=== PATIENT | female | born 1955 ===

== ENCOUNTER 2018-10-08 05:54 | Day surgery (SDC) | payer MEDICAID ==
[2018-09-06 10:41] VITALS: BMI 38.1
[~2018-10-08 05:54] MED LIST: Cyclopentolate 1% Opth (2 ml) OS SCH; Ketorolac Tromethamine 0.5% Opth Soln (3 ml) OS SCH; Lactated Ringer's 500 ML IV ONE; Ofloxacin 0.3% Ophth Soln OS SCH; Phenylephrine 2.5% Opht Soln OS SCH; Tropicamide 0.5% Opht Sol OS SCH
[2018-10-08] MEDS ORDERED: Ketorolac Tromethamine 0.5% Opth Soln (3 ml) OS SCH ×2 (06:00→06:30)
[2018-10-08] MEDS ORDERED: Cyclopentolate 1% Opth (2 ml) OS SCH ×2 (06:00→06:30)
[2018-10-08] MEDS ORDERED: Ofloxacin 0.3% Ophth Soln OS SCH ×2 (06:00→06:30)
[2018-10-08] MEDS ORDERED: Tropicamide 0.5% Opht Sol OS SCH ×2 (06:00→06:30)
[2018-10-08] MEDS ORDERED: Phenylephrine 2.5% Opht Soln OS SCH ×2 (06:00→06:30)
[2018-10-08] MEDS ORDERED: Lactated Ringer's 500 ML IV ONE (06:00)
[2018-10-08 07:00] VITALS: PULSE 69; RESP 18; TEMP 98.1; O2SAT 99
[2018-10-08] MEDS ORDERED: Povidone Iodine Ophthalmic 5% Soln ONE (07:20)
[2018-10-08] MEDS ORDERED: Tetracaine 0.5% Ophth (OR ONLY) ONE (07:21)
[2018-10-08] MEDS ORDERED: Lidocaine 2% MPF (5 ml) Inj ONE (07:21)
[2018-10-08] MEDS ORDERED: Carbachol 0.01% IO ONE (07:21)
[2018-10-08] MEDS ORDERED: Hyaluronidase Human, Recombi 150 U/ML VIAL ONE (07:22)
[2018-10-08] MEDS ORDERED: Chondroitin/Hyaluronate Opth Syringe KIT (0.55 ml-0.5 ml) IO ONE (07:22)
[2018-10-08] MEDS ORDERED: Tobramycin/Dexamethasone (Tobradex) Opth Sol (2.5 ml) ONE (07:22)
[2018-10-08] MEDS ORDERED: Tobramycin/Dexamethasone OPHT OINT ONE (07:22)
[2018-10-08] MEDS ORDERED: Propofol 10 mg/ml Inj (20 ML) ONE (07:47)
[2018-10-08 09:19] VITALS: BP 114/78
--- NOTE | 2018-10-16 06:51 | OP ---
PROCEDURE DATE: 10/08/2018 PREOPERATIVE DIAGNOSIS: Cataract, left eye. POSTOPERATIVE DIAGNOSIS: Cataract, left eye. OPERATIVE PROCEDURE: Cataract extraction with implant, left eye. ANESTHESIA TYPE: Local, standby. COMPLICATIONS: None. PROCEDURE: Local anesthesia was achieved using a mixture of 1% lidocaine and Amphadase. The patient was then prepped and draped in the usual sterile fashion for ophthalmic surgery. Betadine drops were placed into the eye. A lid speculum was used and a sideport incision was made using a 15-degree blade. Viscoelastic was used to fill the anterior chamber and a 2.7-mm slit blade was used to create a surgical opening. Additional viscoelastic was placed into the eye and a capsulorrhexis was performed. Hydrodissection and delineation were then carried out. Phacoemulsification of the nucleus was performed with ease and cortical cleanup was achieved without difficulty. The capsular bag was refilled using viscoelastic, and a posterior chamber lens was inserted through the existing wound and placed into the capsular bag and easily centered. All viscoelastic was then aspirated from the eye and Miochol was instilled for good symmetric pupillary constriction. The sideport wound was hydrated as necessary and a good watertight closure was observed at the conclusion of the case. A TobraDex soaked collagen shield was then placed over the eye. The lid speculum was removed. TobraDex ointment was placed onto the eye and a patch and shield were placed. The patient tolerated the procedure well. Alan Lawson MD
== END 2018-10-08 09:19 | disposition home or self-care (01) ==
LOC: C.SDS 05:54
PROVIDERS: ATTEND Ophthalmology
DX: H25.12 Age-related nuclear cataract, left eye (principal)
CPT/HCPCS: 66984; J2704; J3470; J7120; V2632

== ENCOUNTER 2018-12-16 11:30 | Outpatient (CLI) | payer MEDICAID | END 2018-12-16 11:31 | disposition home or self-care (01) | LOC: C.DEXAIC 11:30 | DX: M81.0 Age-related osteoporosis without current pathological fracture (principal) ==

== ENCOUNTER 2018-12-23 15:16 | Outpatient (CLI) | payer MEDICAID | END 2018-12-23 15:17 | disposition home or self-care (01) | LOC: C.MAMMO 15:16 | DX: Z12.31 Encounter for screening mammogram for malignant neoplasm of breast (principal) ==